=== PATIENT | female | born 1950 | race Two or more races ===

== ENCOUNTER 2018-04-03 09:00 | Outpatient (CLI) | payer OTHER ==
[~2018-04-03 09:00] MED LIST: ECHINACEA80 MG; TYLENOL32 MG/ML
== END 2018-04-03 18:54 | disposition home or self-care (01) ==
LOC: LAB
DX: I10 Essential (primary) hypertension (principal); E11.9 Type 2 diabetes mellitus without complications; E03.8 Other specified hypothyroidism; E78.2 Mixed hyperlipidemia; K92.1 Melena; D64.0 Hereditary sideroblastic anemia; M81.0 Age-related osteoporosis without current pathological fracture

== ENCOUNTER 2018-04-03 10:58 | Outpatient (CLI) | payer OTHER | END 2018-04-03 11:04 | disposition home or self-care (01) | LOC: NUCLEAR 10:58 → RAD 10:58 → NUCLEAR 11:04 | DX: M81.0 Age-related osteoporosis without current pathological fracture (principal); N62 Hypertrophy of breast; M54.12 Radiculopathy, cervical region; M19.042 Primary osteoarthritis, left hand; M19.041 Primary osteoarthritis, right hand ==

== ENCOUNTER 2018-06-25 10:35 | Outpatient (CLI) | payer OTHER | END 2018-06-25 10:45 | disposition home or self-care (01) | LOC: MAMO-SONO 10:35 | DX: Z12.31 Encounter for screening mammogram for malignant neoplasm of breast (principal); Z87.898 Personal history of other specified conditions; N64.4 Mastodynia; N63.10 Unspecified lump in the right breast, unspecified quadrant; N63.20 Unspecified lump in the left breast, unspecified quadrant ==

== ENCOUNTER 2018-07-16 14:25 | Outpatient (CLI) | payer OTHER ==
[~2018-07-16] VITALS: Ht 154.9 cm; Wt 53.5 kg
== END 2018-07-16 14:50 | disposition home or self-care (01) ==
LOC: OFIC 805 14:25
DX: R09.81 Nasal congestion (principal); J30.89 Other allergic rhinitis; J34.89 Other specified disorders of nose and nasal sinuses

== ENCOUNTER 2018-07-26 09:14 | Outpatient (CLI) | payer OTHER | END 2018-07-26 09:19 | disposition home or self-care (01) | LOC: LAB 09:14 | DX: I10 Essential (primary) hypertension (principal); D68.8 Other specified coagulation defects; Z01.818 Encounter for other preprocedural examination ==

== ENCOUNTER → 2018-07-30 | Outpatient (CLI) | payer OTHER | END | disposition home or self-care (01) | LOC: EKG 12:22 | DX: Z01.810 Encounter for preprocedural cardiovascular examination (principal) ==

== ENCOUNTER 2018-08-15 12:47 | Outpatient (CLI) | payer OTHER | END 2018-08-15 13:03 | disposition home or self-care (01) | LOC: RAD 12:47 | DX: M16.0 Bilateral primary osteoarthritis of hip (principal) ==

== ENCOUNTER 2018-10-01 10:32 | Outpatient (CLI) | payer OTHER ==
[~2018-10-01] VITALS: Ht 152.4 cm; Wt 53.5 kg
== END 2018-10-01 10:45 | disposition home or self-care (01) ==
LOC: OFIC 805 10:32
DX: J30.89 Other allergic rhinitis (principal); R04.0 Epistaxis

== ENCOUNTER 2018-11-03 09:57 | Outpatient (CLI) | payer OTHER ==
[~2018-11-03] VITALS: Ht 152.4 cm; Wt 53.5 kg
== END 2018-11-03 10:15 | disposition home or self-care (01) ==
LOC: OFIC 805 09:57
DX: R04.0 Epistaxis (principal); J34.89 Other specified disorders of nose and nasal sinuses; R09.81 Nasal congestion; L29.9 Pruritus, unspecified; J30.89 Other allergic rhinitis; K21.0 Gastro-esophageal reflux disease with esophagitis

== ENCOUNTER → 2019-01-29 15:40 | Outpatient (CLI) | payer OTHER | END | disposition home or self-care (01) | LOC: LAB 07:45 | DX: E11.9 Type 2 diabetes mellitus without complications (principal); I10 Essential (primary) hypertension; E03.8 Other specified hypothyroidism; E78.2 Mixed hyperlipidemia; Z12.11 Encounter for screening for malignant neoplasm of colon; E55.9 Vitamin D deficiency, unspecified; M81.0 Age-related osteoporosis without current pathological fracture ==

== ENCOUNTER 2019-02-20 10:36 | Outpatient (CLI) | payer OTHER ==
[~2019-02-20] VITALS: Ht 152.4 cm; Wt 54.4 kg
[2019-02-20] MEDS ORDERED: CLARITIN10 MG PO (11:49)
[2019-02-20] MEDS ORDERED: PEPCID40 MG PO (11:49)
== END 2019-02-20 12:51 | disposition home or self-care (01) ==
LOC: OFIC 805 10:36
DX: J37.0 Chronic laryngitis (principal); J30.89 Other allergic rhinitis

== ENCOUNTER 2020-07-13 11:15 | Outpatient (CLI) | payer OTHER ==
[~2020-07-13 11:15] MED LIST changes: +CLARITIN10 MG PO; +PEPCID40 MG PO
== END 2020-07-13 14:33 | disposition home or self-care (01) ==
LOC: OFIC 805 11:15
PROVIDERS: ATTEND Otolaryngology
DX: J30.89 Other allergic rhinitis (principal); J34.89 Other specified disorders of nose and nasal sinuses

== ENCOUNTER 2020-08-10 09:52 | Outpatient (CLI) | payer OTHER | END 2020-08-10 09:53 | disposition home or self-care (01) | LOC: LAB 09:52 | PROVIDERS: ATTEND Physical Medicine & Rehabilitation | DX: Z20.828 Contact with and (suspected) exposure to other viral communicable diseases (principal); Z11.59 Encounter for screening for other viral diseases ==

== ENCOUNTER 2020-08-25 06:41 | Outpatient (CLI) | payer OTHER ==
[2020-10-02] MEDS ORDERED: ZANAFLEX4 M1 PO (14:40)
== END 2020-08-25 06:47 | disposition home or self-care (01) ==
LOC: LAB 06:41
PROVIDERS: ATTEND Internal Medicine
DX: I10 Essential (primary) hypertension (principal); E55.9 Vitamin D deficiency, unspecified; E03.8 Other specified hypothyroidism; E78.2 Mixed hyperlipidemia; E11.65 Type 2 diabetes mellitus with hyperglycemia

== ENCOUNTER 2020-09-18 09:32 | Outpatient (CLI) | payer OTHER ==
[2020-10-02] MEDS ORDERED: ZANAFLEX4 M1 PO (14:40)
== END 2020-09-18 09:39 | disposition home or self-care (01) ==
LOC: NUCLEAR 09:32
PROVIDERS: ATTEND Internal Medicine
DX: M81.0 Age-related osteoporosis without current pathological fracture (principal)

== ENCOUNTER 2020-10-14 10:28 | Outpatient (CLI) | payer OTHER ==
[~2020-10-14 10:28] MED LIST changes: +ZANAFLEX4 M1 PO
== END 2020-10-14 10:37 | disposition home or self-care (01) ==
LOC: RAD 10:28
PROVIDERS: ATTEND Internal Medicine Cardiovascular Disease
DX: M12.89 Other specific arthropathies, not elsewhere classified, multiple sites (principal); N63.11 Unspecified lump in the right breast, upper outer quadrant; Z12.31 Encounter for screening mammogram for malignant neoplasm of breast; M46.47 Discitis, unspecified, lumbosacral region
CPT/HCPCS: 72141

== ENCOUNTER 2021-01-14 07:26 | Outpatient (CLI) | payer OTHER | END 2021-01-14 07:31 | disposition home or self-care (01) | LOC: LAB 07:26 | PROVIDERS: ATTEND Internal Medicine | DX: I10 Essential (primary) hypertension (principal); E78.49 Other hyperlipidemia; E03.8 Other specified hypothyroidism; R73.03 Prediabetes; E55.9 Vitamin D deficiency, unspecified ==

== ENCOUNTER 2021-01-22 06:08 | Outpatient (CLI) | payer OTHER | END 2021-01-22 15:00 | disposition home or self-care (01) | LOC: LAB 06:08 | PROVIDERS: ATTEND Internal Medicine Cardiovascular Disease | DX: R05 Cough (principal); R06.2 Wheezing; R50.9 Fever, unspecified ==

== ENCOUNTER 2021-11-09 07:51 | Outpatient (CLI) | payer OTHER ==
[~2021-11-09 07:51] MED LIST changes: +NEURONTIN300 MG PO; +NORFLEX100MG PO
== END 2021-11-09 07:57 | disposition home or self-care (01) ==
LOC: RAD 07:51
PROVIDERS: ATTEND Physical Medicine & Rehabilitation
DX: M89.319 Hypertrophy of bone, unspecified shoulder (principal)

== ENCOUNTER 2022-02-02 09:02 | Outpatient (CLI) | payer OTHER | END 2022-02-02 09:03 | disposition home or self-care (01) | LOC: LAB 09:02 | PROVIDERS: ATTEND Internal Medicine Cardiovascular Disease | DX: I10 Essential (primary) hypertension (principal); E78.2 Mixed hyperlipidemia; E03.9 Hypothyroidism, unspecified ==

== ENCOUNTER 2022-02-16 08:49 | Outpatient (CLI) | payer OTHER | END 2022-02-16 08:54 | disposition home or self-care (01) | LOC: RAD 08:49 | PROVIDERS: ATTEND Internal Medicine Cardiovascular Disease | DX: M12.9 Arthropathy, unspecified (principal); M50.10 Cervical disc disorder with radiculopathy, unspecified cervical region; M50.122 Cervical disc disorder at C5-C6 level with radiculopathy; M50.123 Cervical disc disorder at C6-C7 level with radiculopathy | CPT/HCPCS: 72141 ==

== ENCOUNTER 2022-09-12 10:13 | Outpatient (CLI) | payer OTHER | END 2022-09-12 10:22 | disposition home or self-care (01) | LOC: MRI 10:13 | PROVIDERS: ATTEND Internal Medicine Cardiovascular Disease | DX: M12.9 Arthropathy, unspecified (principal); M46.48 Discitis, unspecified, sacral and sacrococcygeal region | CPT/HCPCS: 72141 ==

== ENCOUNTER 2024-03-12 09:18 | Outpatient (CLI) | payer OTHER ==
[~2024-03-12 09:18] MED LIST changes: +COLACE100 MG PO; +MEDROLPACK PO; +PERCOCET 5-3251 EACH PO; +ZOFRAN8 MG PO
== END 2024-03-12 09:23 | disposition home or self-care (01) ==
LOC: RAD 09:18
PROVIDERS: ATTEND Orthopaedic Surgery Orthopaedic Surgery of the Spine
DX: Z98.1 Arthrodesis status (principal)

== ENCOUNTER 2024-08-14 07:29 | Outpatient (CLI) | payer OTHER | END 2024-08-14 07:33 | disposition home or self-care (01) | LOC: RAD 07:29 | PROVIDERS: ATTEND Physical Medicine & Rehabilitation Sports Medicine | DX: M47.816 Spondylosis without myelopathy or radiculopathy, lumbar region (principal) ==

== ENCOUNTER 2024-08-21 06:17 | Outpatient (CLI) | payer OTHER ==
[2024-08-21 06:53] LABS: HEMATOCRIT 41.8 % (36.0-45.00); HEMOGLOBIN 14.3 g/dL (12.0-15.00); MEAN CELL VOLUME 92.4 fL (80.00-100.00); MEAN CORPUSCULAR HEMOGLOBIN 31.5 pg (27.00-32.0); MEAN CORPUSCULAR HGB CONC 34.1 g/dl (32.0-36.0); PLATELET COUNT 235 K/uL (150-450); RED BLOOD COUNT 4.52 M/uL (4.00-6.00); RED CELL DISTRIBUTION WIDTH 13.5 % (11.5-14.5)
[2024-08-21 07:46] LABS: PH,URINE 5.5 (5.0-8.0); URINE APPEARANCE Clear; URINE BILIRRUBIN Negative (NEGATIVE); URINE BLOOD Negative; URINE COLOR Yellow; URINE GLUCOSE Negative (NEGATIVE); URINE KETONE Negative (NEGATIVE); URINE LEUKOCYTE Negative; URINE NITRATE Negative; URINE PROTEIN Negative (NEGATIVE); URINE UROBILINOGEN 0.2 E.U./dl
[2024-08-21 07:50] LABS: URINE BACTERIA 4.8 uL (0.0-1933); URINE EPITHELIAL CELLS 3.3 uL (0.0-38.8); URINE RBC 15.7 uL (0.0-20.8); URINE WBC 2.3 uL (0.0-23.2)
[2024-08-21 07:55] LABS: BILIRUBIN TOTAL 0.35 mg/dL (0.3-1.2); CALCIUM 9.2 mg/dL (8.5-10.1); CHOL HDL RATIO 2.3 (0-5.0); CREATININE SERUM 0.55 mg/dL (0.55-1.02); GFR 108.05; GLOBULINA 3.6 G/DL (2.4-3.5); POTASSIUM 3.86 mEq/L (3.5-5.1); T4 TOTAL 9.35 UG/DL (4.8-13.9); TOTAL PROTEIN 7.6 gm/dL (6.4-8.2); TSH 2.54 uIU/mL (0.358-3.74)
[2024-08-21 08:37] LABS: URINE CAST 0.29 uL (0.0-1.40)
[2024-08-21 09:56] LABS: T3 TOTAL 0.991 ng/ml (0.846-2.02); VITAMIN D3 25 HYDROXY 26.71 ng/ml (30-120)
== END 2024-08-21 06:22 | disposition home or self-care (01) ==
LOC: LAB 06:17
PROVIDERS: ATTEND Internal Medicine Cardiovascular Disease
DX: I10 Essential (primary) hypertension (principal); E11.9 Type 2 diabetes mellitus without complications; E03.9 Hypothyroidism, unspecified; E78.2 Mixed hyperlipidemia; D64.0 Hereditary sideroblastic anemia; Z12.11 Encounter for screening for malignant neoplasm of colon; E55.9 Vitamin D deficiency, unspecified; M81.0 Age-related osteoporosis without current pathological fracture

== ENCOUNTER → 2024-08-23 10:49 | Outpatient (CLI) | payer OTHER ==
[2024-08-23 12:06] LABS: ob NEGATIVE (NEGATIVE)
== END | disposition home or self-care (01) ==
LOC: LAB 10:49
PROVIDERS: ATTEND Internal Medicine Cardiovascular Disease
DX: E11.9 Type 2 diabetes mellitus without complications (principal); I10 Essential (primary) hypertension; E03.9 Hypothyroidism, unspecified; E78.2 Mixed hyperlipidemia; D64.9 Anemia, unspecified; Z12.11 Encounter for screening for malignant neoplasm of colon; E55.9 Vitamin D deficiency, unspecified; M81.0 Age-related osteoporosis without current pathological fracture

== ENCOUNTER 2024-11-18 09:17 | Outpatient (CLI) | payer OTHER ==
[2024-11-18 10:09] LABS: BASO % 0.1 % (0.1-1.2); EOS # 0.04 (0.04-0.54); EOS % 0.5 % (0.7-7.0); HEMATOCRIT 38.7 % (34.1-44.9); HEMOGLOBIN 13.3 g/dL (11.2-15.7); LYMPH # 1.64 (1.18-3.74); LYMPH % 21.5 % (19.3-53.1); MEAN CORPUSCULAR HEMOGLOBIN 31.4 pg (25.6-32.2); MONO # 0.58 (0.24-0.82); MONO % 7.6 % (4.7-12.5); NEUT # 5.33 (1.56-6.13); PLATELET COUNT 246 K/uL (163-369); RED BLOOD COUNT 4.23 M/uL (3.93-5.22); RED CELL DISTRIBUTION WIDTH 12.9 % (11.6-14.4)
[2024-11-18 10:28] LABS: PH,URINE 5.5 (5.0-8.0); URINE APPEARANCE Clear; URINE BILIRRUBIN Negative (NEGATIVE); URINE BLOOD Negative; URINE COLOR Yellow; URINE GLUCOSE Negative (NEGATIVE); URINE KETONE Negative (NEGATIVE); URINE LEUKOCYTE Negative; URINE NITRATE Negative; URINE PROTEIN Trace (NEGATIVE)
[2024-11-18 11:31] LABS: URINE BACTERIA FEW; URINE CRYSTALS FEW /HPF; URINE EPITHELIAL CELLS 0-4 /HPF; URINE RBC 0-3 /HPF; URINE WBC 0-2 /hpf
[2024-11-18 11:32] LABS: CHOL HDL RATIO 2.3 (0-5.0); CREATININE SERUM 0.54 mg/dL (0.55-1.02); GFR 110.36; POTASSIUM 4.43 mEq/L (3.5-5.1); T4 TOTAL 7.8 UG/DL (4.8-13.9); TSH 1.13 uIU/mL (0.358-3.74)
== END 2024-11-18 09:20 | disposition home or self-care (01) ==
LOC: LAB 09:17
PROVIDERS: ATTEND Internal Medicine Cardiovascular Disease
DX: E03.9 Hypothyroidism, unspecified (principal); E78.2 Mixed hyperlipidemia; I10 Essential (primary) hypertension; R73.03 Prediabetes

== ENCOUNTER 2025-02-19 07:34 | Outpatient (CLI) | payer OTHER ==
[2025-02-19 08:42] LABS: BASO % 0.3 % (0.1-1.2); EOS # 0.05 (0.04-0.54); EOS % 0.8 % (0.7-7.0); LYMPH # 1.47 (1.18-3.74); LYMPH % 24.3 % (19.3-53.1); MEAN PLATELET VOLUME 10.30 fl (9.4-12.4); MONO # 0.59 (0.24-0.82); MONO % 9.7 % (4.7-12.5); NEUT # 3.92 (1.56-6.13); NEUT % 64.7 % (34.0-71.1); RED CELL DISTRIBUTION WIDTH 12.7 % (11.6-14.4)
[2025-02-19 09:20] LABS: URINE APPEARANCE Clear; URINE BILIRRUBIN Negative (NEGATIVE); URINE BLOOD Negative; URINE COLOR Yellow; URINE GLUCOSE Negative (NEGATIVE); URINE KETONE Negative (NEGATIVE); URINE LEUKOCYTE Trace; URINE NITRATE Negative; URINE PROTEIN Negative (NEGATIVE); URINE UROBILINOGEN 0.2 E.U./dl
[2025-02-19 09:21] LABS: URINE BACTERIA 7.1 uL (0.0-1933); URINE EPITHELIAL CELLS 9.9 uL (0.0-38.8); URINE RBC 10.9 uL (0.0-20.8); URINE WBC 3.8 uL (0.0-23.2)
[2025-02-19 09:23] LABS: BUN CREA RATIO 17.0 (7.0-25.0); CHOL HDL RATIO 2.3 (0-5.0); CREATININE SERUM 0.52 mg/dL (0.55-1.02); GFR 114.96; GLUCOSE FASTING 89.0 mg/dL (65-100); HDL 89.0 mg/dl (40-60); LDL 113.0 mg/dl (0-130); OSMOLALITY SERUM 281.0 MOSM/KG (275-295); T4 TOTAL 7.68 UG/DL (4.8-13.9); TSH 1.85 uIU/mL (0.358-3.74); VLDL 7.0 (0-39)
[2025-02-19 09:26] LABS: URINE CAST 0.43 uL (0.0-1.40)
== END 2025-02-19 07:39 | disposition home or self-care (01) ==
LOC: LAB 07:34
PROVIDERS: ATTEND Internal Medicine Cardiovascular Disease
DX: I10 Essential (primary) hypertension (principal); E03.9 Hypothyroidism, unspecified; E78.2 Mixed hyperlipidemia; Z88.0 Allergy status to penicillin; Z88.1 Allergy status to other antibiotic agents